=== PATIENT | female | born 1985 | race Caucasian/White ===

== ENCOUNTER 2017-09-16 08:38 | Emergency (ER) | payer MEDICAID ==
[~2017-09-16] VITALS: Ht 172.7 cm; Wt 93.9 kg
[2017-09-16 10:01] VITALS: BP 112/88
[2017-09-16] MEDS ORDERED: KETOROLAC TROMETH 60MG/2ML VIAL IM ONE (10:30)
== END 2017-09-16 11:11 | disposition home or self-care (01) ==
LOC: ER 08:38
DX: M79.1 Myalgia (principal); M19.90 Unspecified osteoarthritis, unspecified site; Z87.442 Personal history of urinary calculi
CPT/HCPCS: 71020; 81025; 96372; 99284; J1885